=== PATIENT | male | born 1990 | race African-American/Black ===

== ENCOUNTER 2024-12-18 16:03 | Emergency (ER) | payer OTHER ==
[~2024-12-18] VITALS: Ht 175.3 cm; Wt 97.5 kg
[2024-12-18] MEDS ORDERED: ALBU8.5H8 INH (17:08)
[2024-12-18] MEDS ORDERED: BUDE10.2 INH (17:08)
[2024-12-18 17:12] VITALS: BP 119/71; O2SAT 99
== END 2024-12-18 17:13 | disposition home or self-care (01) ==
LOC: ER 16:21
DX: J45.909 Unspecified asthma, uncomplicated (principal); Z76.0 Encounter for issue of repeat prescription
CPT/HCPCS: A4606; A4663